=== PATIENT | female | born 1975 | race African-American/Black ===

== ENCOUNTER 2017-08-31 12:58 | Emergency (ER) | payer OTHER ==
[2017-08-31 13:32] LABS: PLATELET COUNT 246 10^3/uL (150-400)
--- NOTE | 2017-08-31 13:32 | EDPHY ---
H & P Smoking Status: Never smoked Time Seen by Provider: 08/31/17 13:10 HPI/ROS: CHIEF COMPLAINT: Spotting HISTORY OF PRESENT ILLNESS: The patient is a 42-year-old female G6 para 3 with a previous miscarriage and ectopic which required tubal removal. The patient states her last menstrual period was 07/17/2017. She had a positive test. She has not yet seen her clinical sociologist, Dr. Fatmata Cool. Patient noticed some mild left-sided abdominal discomfort on . Yesterday she started to have a small amount of spotting. She denies any fevers or chills. No nausea vomiting. No dysuria frequency. No recent trauma. REVIEW OF SYSTEMS: My complete review of systems is negative except as mentioned in the HPI. ( Tara Contreras) Past Medical/Surgical History: Includes miscarriage, ectopic Past surgical history: Tubal removal for ectopic Social history: The patient does not smoke. She is . (Tara Contreras ) Physical Exam: Vitals noted GENERAL: Well-appearing, in no acute distress, alert. HEENT: Eyes normal to inspection, normal pharynx, no signs of dehydration. NECK: No thyromegaly, no lymphadenopathy, supple. RESPIRATORY: Clear to auscultation bilaterally, no rales, rhonchi or wheezing. CVS: Regular rate and rhythm, no rubs, murmurs, or gallops. ABDOMEN: Soft, mild left lower quadrant tenderness to palpation with no rebound or guarding, nondistended, no organomegaly. BACK: Normal to inspection, no CVA tenderness. SKIN: Normal color, no rash, warm, dry. No pallor. EXTREMITIES: No pedal edema, no calf tenderness, no joint swelling. NEURO/PSYCH: Alert and oriented, normal mood and affect, normal motor sensory exam. (Tara Contreras) Constitutional: Initial Vital Signs Temperature (C) 37.4 C 08/31/17 13:03 Heart Rate 82 08/31/17 13:03 Respiratory Rate 16 08/31/17 13:03 Blood Pressure 128/85 H 08/31/17 13:03 O2 Sat (%) 96 08/31/17 13:03 O2 Delivery Mode Room Air Allergies/Adverse Reactions: No Known Allergies Allergy (Verified 08/31/17 13:05) Home Medications: Medication Instructions Recorded NK [No Known Home Meds] 08/31/17 Medical Decision Making - Diagnostics Imaging Results: Imaging Impressions Obstetrics Ultrasound 08/31/17 13:10 Impression: 1. Intrauterine gestation at 6 weeks 1 day with yolk sac visualized and heart tones. The heart tones are somewhat diminished at 81 bpm. 2. Markedly fibroid uterus. 3. Mild complex cyst right ovary, likely corpus luteum cyst. Results called to Dr. Contreras at 3:00 p.m. ED Course/Re-evaluation: In the emergency department I discussed possible etiologies with the patient. I answered all her questions. An IV was placed. Laboratory studies were obtained. Ultrasound was ordered. Patient's CBC and chemistry unremarkable. Patient's beta quant was 10,058 I discussed the results with the patient. On recheck she was doing well. She had no significant tenderness to palpation. No rebound or guarding. Patient will follow up with her clinical sociologist. She is aware that she needs repeat labs drawn in 48 hr. Ultrasound: Please refer the dictated report by Dr. Haro. The patient has an IUP. Heart rate is in the 80s. Fibroid uterus. I discussed the results with the patient and answered all her questions. Rh is pending. 1500: The patient is signed out to Dr. Andres at change of shift. She will follow up on the Rh and the patient will be discharged. (Tara Contreras) I assumed care of the patient pending results of our Rh test. Patient is Rh positive per verbal report from the cytology laboratory manager. Complete blood typing is pending. I discussed the result with the patient. She has a prescription written by doctors unable for recheck of her quant in 2 days and I am recommending follow up with her usual merchandise associate by phone on Friday. (Dolly Andres) Differential Diagnosis: My differential includes but is not limited to , ectopic , threatened miscarriage, miscarriage, implantation (Tara Contreras) - Data Points Laboratory Results: Laboratory Results 08/31/17 13:20 08/31/17 13:20 08/31/17 08/31/17 08/31/17 13:20 13:20 13:20 WBC 4.21 10^3/uL 10^3/uL (3.80-9.50) RBC 5.03 10^6/uL 10^6/uL (4.18-5.33) Hgb 15.4 g/dL g/dL (12.6-16.3) Hct 45.0 % % (38.0-47.0) MCV 89.5 fL fL (81.5-99.8) MCH 30.6 pg pg (27.9-34.1) MCHC 34.2 g/dL g/dL (32.4-36.7) RDW 13.0 % % (11.5-15.2) Plt Count 246 10^3/uL 10^3/uL (150-400) MPV 9.2 fL fL (8.7-11.7) Neut % (Auto) 43.5 % % (39.3-74.2) Lymph % (Auto) 42.0 % % (15.0-45.0) [place] % (Auto) 10.7 % % (4.5-13.0) Eos % (Auto) 2.6 % % (0.6-7.6) Baso % (Auto) 1.0 % % (0.3-1.7) Nucleat RBC Rel Count 0.0 % % (0.0-0.2) Absolute Neuts (auto) 1.83 10^3/uL 10^3/uL (1.70-6.50) Absolute Lymphs (auto) 1.77 10^3/uL 10^3/uL (1.00-3.00) Absolute Monos (auto) 0.45 10^3/uL 10^3/uL (0.30-0.80) Absolute Eos (auto) 0.11 10^3/uL 10^3/uL (0.03-0.40) Absolute Basos (auto) 0.04 10^3/uL 10^3/uL (0.02-0.10) Absolute Nucleated RBC 0.00 10^3/uL 10^3/uL (0-0.01) Immature Gran % 0.2 % % (0.0-1.1) Immature Gran # 0.01 10^3/uL 10^3/uL (0.00-0.10) Sodium 138 mEq/L mEq/L (135-145) Potassium 3.9 mEq/L mEq/L (3.5-5.2) Chloride 102 mEq/L mEq/L (97-110) Carbon Dioxide 26 mEq/l mEq/l (22-31) Anion Gap 10 mEq/L mEq/L (8-16) BUN 12 mg/dL mg/dL (7-23) Creatinine 1.0 mg/dL mg/dL (0.6-1.0) Estimated GFR > 60 Glucose 84 mg/dL mg/dL (70-100) Calcium 9.7 mg/dL mg/dL (8.5-10.4) Beta HCG, Quant 77249.00 mIU/mL H mIU/mL (0.00-4.83) Urine Color Urine Appearance Urine pH Ur Specific [place] Urine Protein Urine Ketones Urine Blood Urine Nitrate Urine Bilirubin Urine Urobilinogen Ur Leukocyte Esterase Urine RBC Urine WBC Ur Epithelial Cells Urine Bacteria Urine Glucose Patient ABO/Rh 08/31/17 08/31/17 13:10 13:08 WBC RBC Hgb Hct MCV MCH MCHC RDW Plt Count MPV Neut % (Auto) Lymph % (Auto) [place] % (Auto) Eos % (Auto) Baso % (Auto) Nucleat RBC Rel Count Absolute Neuts (auto) Absolute Lymphs (auto) Absolute Monos (auto) Absolute Eos (auto) Absolute Basos (auto) Absolute Nucleated RBC Immature Gran % Immature Gran # Sodium Potassium Chloride Carbon Dioxide Anion Gap BUN Creatinine Estimated GFR Glucose Calcium Beta HCG, Quant Urine Color YELLOW Urine Appearance CLEAR Urine pH 6.0 (5.0-7.5) Ur Specific [place] <= 1.005 (1.002-1.030) Urine Protein NEGATIVE (NEGATIVE) Urine Ketones NEGATIVE (NEGATIVE) Urine Blood NEGATIVE (NEGATIVE) Urine Nitrate NEGATIVE (NEGATIVE) Urine Bilirubin NEGATIVE (NEGATIVE) Urine Urobilinogen 0.2 EU EU (0.2-1.0) Ur Leukocyte Esterase NEGATIVE (NEGATIVE) Urine RBC 1-3 /hpf /hpf (0-3) Urine WBC 0-1 /hpf /hpf (0-3) Ur Epithelial Cells TRACE /lpf /lpf (NONE-1+) Urine Bacteria TRACE /hpf H /hpf (NONE SEEN) Urine Glucose NEGATIVE (NEGATIVE) Patient ABO/Rh AB POSITIVE Medications Given: Discontinued Medications Sodium Chloride (Ns) 500 mls @ 0 mls/hr IV ONCE ONE PRN Reason: Wide Open Stop: 08/31/17 13:36 Last Admin: 08/31/17 13:37 Dose: 500 mls Departure - Departure Disposition: Home, Routine, Self-Care Clinical Impression: Threatened , Vaginal bleeding Condition: Good Instructions: Threatened Miscarriage (ED) Additional Instructions: You need to have your beta HCG redrawn on 09/02/2017 to compare with values from today. You need close follow-up with her clinical sociologist Dr. Cool. Call on Friday morning to make an appointment. [facility] - 1-2 days without fail
[2017-08-31] MEDS ORDERED: NS 500 ML IV ONE (13:35)
[2017-08-31 15:54] VITALS: BP 114/78
== END 2017-08-31 15:54 | disposition home or self-care (01) ==
LOC: CED 12:58
DX: O20.0 Threatened abortion (principal); Z3A.01 Less than 8 weeks gestation of pregnancy
CPT/HCPCS: 80048-PO; 81003-PO; 81015-PO; 84702-PO; 85025-PO